=== PATIENT | female | born 1955 | race Caucasian/White ===

== ENCOUNTER 2022-06-24 23:23 | Inpatient (IN) | payer MEDICARE, BC ==
[~2022-06-24] VITALS: Ht 175.3 cm; Wt 68.9 kg
--- NOTE | 2022-06-25 00:20 | NUR ---
Patient ambulatory with a steady gait. A/O x3. NAD noted.
--- NOTE | 2022-06-25 01:19 | NUR ---
Covid swab taken to lab.
--- NOTE | 2022-06-25 01:55 | NUR ---
Dr. Antonio at bedside. MSE in progress.
[2022-06-25 01:57] LABS: HEMATOCRIT 39.9 % (31.2-41.9); MEAN CORPUSCULAR HEMOGLOBIN 30.5 uug (24.7-32.8); MEAN CORPUSCULAR VOLUME 92.1 fL (75.5-95.3); PLATELET COUNT (AUTO) 330 K/uL (179-408)
[2022-06-25 02:03] LABS: ALANINE AMINOTRANSFERASE 20 U/L (14-59); ALKALINE PHOSPHATASE 127 U/L (50-136); ASPARTATE AMINOTRANSFERASE < 5 U/L (15-37); BILIRUBIN,DIRECT < 0.1 mg/dL (0.0-0.2); BILIRUBIN,TOTAL 0.2 mg/dL (0.2-1.0); CARBON DIOXIDE 28 mmol/L (21-32); CHLORIDE 105 mmol/L (98-107); GLUCOSE 127 mg/dL (74-106); POTASSIUM 3.9 mmol/L (3.5-5.1); TOTAL PROTEIN, SERUM 7.1 g/dL (6.4-8.2); UREA NITROGEN, BLOOD 21 mg/dL (7-18)
[2022-06-25 02:06] LABS: ETHANOL < 3 MG/DL (0-0)
[2022-06-25 02:11] LABS: THYROID STIMULATING HORMONE 2.238 mIU/mL (0.358-3.740)
[2022-06-25 02:21] LABS: ACETAMINOPHEN < 2.0 ug/mL (10-30)
[2022-06-25 03:22] LABS: *BILIRUBIN,URIN NEGATIVE (NEGATIVE); *BLOOD, URINE NEGATIVE (NEGATIVE); *CLARITY,URINE CLEAR (CLEAR); *COLOR,URINE YELLOW (YELLOW); *KETONES,URINE NEGATIVE (NEGATIVE); *UROBILINOGEN,URINE 0.2 E.U./dl (NORMAL); LEUKOCYTE ESTERASE ,URINE NEGATIVE (NEGATIVE); NITRITE, URINE NEGATIVE (NEGATIVE); UGLUCOSE NEGATIVE (NEGATIVE)
[2022-06-25 03:30] LABS: *AMPHETAMINE, URINE NEGATIVE (NEGATIVE); *CANNABINOID, URINE NEGATIVE (NEGATIVE); *COCCAINE, URINE NEGATIVE (NEGATIVE); *OPIATE, URINE NEGATIVE (NEGATIVE); *PHENCYCLIDINE SCREEN,URINE NEGATIVE (NEGATIVE)
--- NOTE | 2022-06-25 04:52 | NUR ---
Called [facility], no one answered the phone. Will call back in 5 - 10 min.
--- NOTE | 2022-06-25 05:30 | NUR ---
Report given to BAN Pena.
[2022-06-25] MEDS ORDERED: CLON0.5T PO (06:54)
[2022-06-25] MEDS ORDERED: TRAZ-182 PO (06:54)
[2022-06-25] MEDS ORDERED: OLAN5TAB70 PO (06:54)
[2022-06-25] MEDS ORDERED: ESCI20TA PO (06:54)
--- NOTE | 2022-06-25 07:13 | NUR ---
Pt. admitted to MHU, under care of Dr. Baires Belongs List completed
[2022-06-25 07:30] VITALS: BP 134/89
[2022-06-25] MEDS ORDERED: MAGNESIUM HYDROXIDE 30 ML LIQUID UDC PO PRN (08:00)
[2022-06-25] MEDS ORDERED: BLOOD SUGAR DIAGNOSTIC 1 EACH STRIP VI ONE (08:00)
[2022-06-25] MEDS: CLONAZEPAM 0.5 MG TABLET PO PRN (08:30)
--- NOTE | 2022-06-25 09:52 | NUR ---
Admitted a case of 67 years old female from [facility] with history of Psychosis. Patient is on 5150 status hold. Patient arrived in a wheel chair accompanied by RN. Initial report given by Becky CEVALLOS. On admission patient was cooperative to physical assessment and vital signs. Patient ambulates without assistance, lower extremities within functional limits. Upon face to face, patient appeared alert, oriented to person, place, and time, redirectable, cooperative. Patient denies any suicidal or homicidal ideations nor any hallucinations or delusions. Patient was also offered brief orientation to unit rules and policies and given copy of patient's rights handbook. Patient valuables and belongings searched and inventoried, contraband removed. Psychiatrist Dequan and Medical physician Juaquin were informed and orders were carried out. Patient denies any pain or any discomfort.Emotional support provided. Fall and safety precautions implemented. Will continue to monitor for safety.
[2022-06-25] MEDS ORDERED: ESCITALOPRAM OXALATE 10 MG TABLET NG SCH (11:00)
[2022-06-25] MEDS: ESCITALOPRAM OXALATE 10 MG TABLET PO SCH (11:35)
--- NOTE | 2022-06-25 12:01 | NUR ---
DAX Initial Discharge Note: Pt currently resides at home alone located at [address] [place] [address] ([phone]). Pt is alert and oriented x4. Pt stated she would like to return to her home. Pt however is open to a temporary fci facility if recommended by the psychiatrist upon discharge. Pt's sister, Digna will be involved per pt. Pt stated she does not have a DPOA or conservator. Pt stated she is self-responsible. DAX will continue to work with pt, Digna, and to ensure a safe and proper discharge plan.
--- NOTE | 2022-06-25 12:11 | NUR ---
Firearms Report: Cotton Ball Machine Tender completed and submitted a [employer] firearms report for 5150 grave disability certifications. A copy of report has been placed in patient chart.
[2022-06-25 17:24] VITALS: BP 139/82
[2022-06-25] MEDS: TRAZODONE 50 MG TABLET PO SCH (20:09)
--- NOTE | 2022-06-25 20:30 | NUR ---
RECEIVED PATIENT IN HER ROOM, SHE WAS SITTING IN HER BED. PATIENT NOTED A/O X 3. SHE ANXIOUS AND SHE APPEARS PREOCCUPIED AND FIXED ABOUT SLEEPING THROUGH THE NIGHT. SHE STATED, "I JUST NEED MY TRAZODONE. I NEED TO SLEEP TONIGHT BECAUSE I DIDN'T SLEEP WELL LAST NIGHT". PATIENT IS ABLE TO VERBALIZED HER FEELINGS. PATIENT DENIED SI/HI/VH/AH. SHE IS ABLE TO CFS. V/S STABLE. SHE WAS GIVEN PO FLUIDS AND SNACKS. SHE IS REASSURED FOR HER SAFETY. SAFETY AND FALL PRECAUTIONS ARE IN PLACE. WILL CONTINUE TO MONITOR.
[2022-06-25 20:36] VITALS: BP 117/76
[2022-06-26 06:35] LABS: HEMATOCRIT 41.6 % (31.2-41.9); MEAN CORPUSCULAR HEMOGLOBIN 30.5 uug (24.7-32.8); MEAN CORPUSCULAR VOLUME 91.8 fL (75.5-95.3); PLATELET COUNT (AUTO) 323 K/uL (179-408)
[2022-06-26 07:23] LABS: POTASSIUM 4.2 mmol/L (3.5-5.1)
[2022-06-26 07:30] VITALS: BP 120/78
[2022-06-26] MEDS: ACETAMINOPHEN 325 MG TABLET PO PRN (08:39)
[2022-06-26] MEDS: ESCITALOPRAM OXALATE 10 MG TABLET PO SCH (08:40)
[2022-06-26] MEDS: CLONAZEPAM 0.5 MG TABLET PO PRN ×2 (08:40→15:07)
[2022-06-26 16:26] VITALS: BP 110/74
[2022-06-26 20:10] VITALS: BP 105/69
[2022-06-26] MEDS: TRAZODONE 50 MG TABLET PO SCH (20:48)
[2022-06-27] MEDS: TEMAZEPAM 7.5 MG CAPSULE PO PRN (02:08)
--- NOTE | 2022-06-27 03:44 | NUR ---
Patient is withdrawn and refuses to engage with staff or peers. The patient stayed in her room all evening, in bed with blanket over her head. At one point in the night , the patient showed up at the nurses station asking for a sleeping pill. This flex o writer operator assisted the patient with a shower and provided clean cloths. The patient appeared malodorous and unkept. Some paranoia noticed when patient was having a basic interaction with this flex o writer operator. Poor insight and seemingly no motivation to improve mood or to try any type of coping stratiges at this time. Staff will continue to encourage patient to participate in unit activities , spend more time out of the bed and to verbalize her feelings.
[2022-06-27 07:30] VITALS: BP 104/75
[2022-06-27] MEDS: CLONAZEPAM 0.5 MG TABLET PO PRN ×3 (08:05→19:54)
[2022-06-27] MEDS: ESCITALOPRAM OXALATE 10 MG TABLET PO SCH (08:44)
--- NOTE | 2022-06-27 14:59 | NUR ---
Gps/Airport Maintenance Laborer- Stayed in her room most of the morning, observed patient out of her room couple of times. Making her simple needs, known, claimed she's not feeling too well, anxious, tremulous left hamd , clonopin 0.5 mg po 1 tab. given, for anxiety, verbalized some relief .
[2022-06-27 16:58] VITALS: BP 97/73
[2022-06-27] MEDS: ACETAMINOPHEN 325 MG TABLET PO PRN (18:23)
[2022-06-27 20:15] VITALS: BP 141/79
[2022-06-27] MEDS: TRAZODONE 50 MG TABLET PO SCH (21:30)
--- NOTE | 2022-06-28 06:35 | NUR ---
Patient remained isolative in her room. Only time she came out was to ask for " Anxiety medication. " This patient does not engage in any conversation . Slept 8.15 hours and came out of room to the station asking for more " Anxiety medication ." Continuing to encourage this patient to participate with group, too verbalize feelings and to talk about better coping mechanisms other than taking medication around the clock and sleeping as much as possible.
[2022-06-28 07:29] VITALS: BP 116/53
[2022-06-28] MEDS: ESCITALOPRAM OXALATE 10 MG TABLET PO SCH (08:16)
[2022-06-28] MEDS: CLONAZEPAM 0.5 MG TABLET PO PRN ×4 (08:17→20:17)
[2022-06-28] MEDS: ENSURE ENLIVE (VAN) 240 ML LIQUID PO SCH (10:39)
[2022-06-28] MEDS: ACETAMINOPHEN 325 MG TABLET PO PRN (14:26)
--- NOTE | 2022-06-28 15:02 | NUR ---
GPS: Nursing Notes: Mood Disturbance: Depression: Patient is awake and responding to her name, needs prompting to participate in therapeutic groups, depressed mood and anxious affect, isolative and withdrawn in her room at times, evasive when questioned by staff, gets easily anxious when redirected, unable to formulate a viable plan for self care, continue to be compliant with her medications, continue to monitor for safety, continue with treatment plan.
[2022-06-28 16:18] VITALS: BP 95/68
--- NOTE | 2022-06-28 18:02 | NUR ---
GPS: Nursing Notes: Regarding Medication - Ingrezza: Staff informed covering psychiatrist Dr. Muñoz that patient's sister - Digna stated that patient needs to be taking Ingrezza for tardive dyskinesia, Dr. Muñoz said that our pharmacy does not have Ingrezza and he will evaluate her TD tomorrow morning. Staff informed patient's sister - Digna if she could bring the medication if possible. She stated that she would try, but nothing for sure, continue to monitor for safety, continue with treatment plan.
[2022-06-28 20:10] VITALS: BP 96/64
[2022-06-28] MEDS: TRAZODONE 50 MG TABLET PO SCH (20:17)
--- NOTE | 2022-06-29 06:29 | NUR ---
At the start of the shift , patient was requesting Klonopin for anxiety. After receiving PM medications, patient slept all night. This fiction writer did try to engage in conversation with the patient but the patient was not interested. Safety Stratiges in place. Patient denied SI. Monitoring for S/S of TD , depression , confusion and anxiety.
[2022-06-29 07:40] VITALS: BP 106/63
[2022-06-29] MEDS: CLONAZEPAM 0.5 MG TABLET PO PRN ×4 (08:22→20:43)
[2022-06-29] MEDS: ESCITALOPRAM OXALATE 10 MG TABLET PO SCH (08:22)
[2022-06-29] MEDS: ENSURE ENLIVE (VAN) 240 ML LIQUID PO SCH (08:23)
[2022-06-29] MEDS: ACETAMINOPHEN 325 MG TABLET PO PRN (11:48)
--- NOTE | 2022-06-29 12:05 | NUR ---
GPS: Nursing Notes: Mood Disturbance: Depression: Patient is awake and responding to her name, depressed mood and anxious affect, needs prompting to participate in therapeutic groups, gets isolative and withdrawn in her room, evasive when questioned by staff, unable to formulate a viable plan for self care, gets easily anxious when redirected, informed covering psychiatrist Dr. Muñoz of hand tremors and involuntary movement of her tongue, per Dr. Muñoz - for Dr. Baires to follow up tomorrow and to call the sister - Digna, continue to monitor for safety, continue with treatment plan.
[2022-06-29 16:04] VITALS: BP 93/58
[2022-06-29 19:27] VITALS: BP 108/66
[2022-06-29] MEDS: TRAZODONE 50 MG TABLET PO SCH (20:43)
[2022-06-30 07:43] VITALS: BP 95/63
[2022-06-30] MEDS: CLONAZEPAM 0.5 MG TABLET PO PRN ×2 (08:18→15:24)
[2022-06-30] MEDS: ESCITALOPRAM OXALATE 10 MG TABLET PO SCH (08:19)
[2022-06-30] MEDS: ENSURE ENLIVE (VAN) 240 ML LIQUID PO SCH (08:21)
[2022-06-30] MEDS: busPIRone 10 MG TABLET PO SCH (11:20)
[2022-06-30] MEDS: BENZTROPINE MESYLATE 0.5 MG TABLET PO SCH ×2 (11:20→16:10)
--- NOTE | 2022-06-30 13:14 | NUR ---
GPS: Nursing Notes: Mood Disturbance: Depression: Patient is awake and responding to her name, needs prompting to participate in therapeutic groups, depressed mood and anxious affect, delayed responds to questions, but gets easily anxious when questioned by staff, unable to formulate a viable plan for self care, episodes of pacing the hallway, internally preoccupied, gets isolative and withdrawn in her room at times, continue to monitor for safety, compliant with her medications, José Johnson NP spoke with her sister - Digna. Patient started with Cogentin for tardive dyskinesia and Buspar for anxiety per José Johnson NP orders, continue with treatment plan.
[2022-06-30] MEDS: ACETAMINOPHEN 325 MG TABLET PO PRN (15:24)
[2022-06-30 15:35] VITALS: BP 93/59
[2022-06-30 19:55] VITALS: BP 129/79
[2022-06-30] MEDS: TRAZODONE 50 MG TABLET PO SCH (21:10)
[2022-07-01 07:30] VITALS: BP 103/65
[2022-07-01] MEDS: busPIRone 10 MG TABLET PO SCH (09:03)
[2022-07-01] MEDS: BENZTROPINE MESYLATE 0.5 MG TABLET PO SCH ×2 (09:03→16:59)
[2022-07-01] MEDS: ENSURE ENLIVE (VAN) 240 ML LIQUID PO SCH (09:03)
[2022-07-01] MEDS: ESCITALOPRAM OXALATE 10 MG TABLET PO SCH (09:03)
--- NOTE | 2022-07-01 10:06 | NUR ---
Patient had Court Hearing today, 14 Days hold probable cause was given under GD only.
--- NOTE | 2022-07-01 12:52 | NUR ---
GPS: Nursing Notes: Mood Disturbance: Depression: Patient is awake and responding to her name, depressed mood and anxious affect, evasive when questioned by staff, A/Ox3, participating in therapeutic groups, cooperative with nursing care, but isolative and withdrawn in her room at times, unable to formulate a viable plan for self care, continue to monitor for safety, continue with treatment plan.
[2022-07-01 16:56] VITALS: BP 105/64
[2022-07-01] MEDS: CLONAZEPAM 0.5 MG TABLET PO PRN (16:59)
[2022-07-01] MEDS: ACETAMINOPHEN 325 MG TABLET PO PRN (16:59)
--- NOTE | 2022-07-01 20:30 | NUR ---
RECEIVED PATIENT IN HER ROOM IN BED. SHE IS NOTED AWAKE A/O X 2. PATIENT NOTED WITH LOW MOOD AFFECT IS BLUNTED, SPEECH IS CIRCUMSTANTIAL. SHE CONTINUE ISOLATIVE AND WITHDRAWN. SHE APPEARS TO MINIMIZED HER SYMPTOMS. PATIENT WAS REASSURED FOR HER SAFETY, SAFETY AND FALL PRECAUTIONS ARE IN PLACE. V/S STABLE. SHE WAS GIVEN PO FLUIDS AND SNACKS. WILL CONTINUE TO MONITOR.
[2022-07-01] MEDS: TRAZODONE 50 MG TABLET PO SCH (20:48)
[2022-07-01 21:01] VITALS: BP 104/62
[2022-07-02 07:30] VITALS: BP 96/64
[2022-07-02] MEDS: BENZTROPINE MESYLATE 0.5 MG TABLET PO SCH ×2 (09:14→17:16)
[2022-07-02] MEDS: ESCITALOPRAM OXALATE 10 MG TABLET PO SCH (09:14)
[2022-07-02] MEDS: busPIRone 10 MG TABLET PO SCH (09:14)
[2022-07-02] MEDS: ENSURE ENLIVE (VAN) 240 ML LIQUID PO SCH (09:15)
[2022-07-02 16:23] VITALS: BP 122/77
[2022-07-02 20:11] VITALS: BP 106/70
[2022-07-02] MEDS: TRAZODONE 50 MG TABLET PO SCH (20:19)
--- NOTE | 2022-07-02 21:02 | NUR ---
Received patient in the hallway by the nurses station. Patient was alert.Patient requested for water from this typewriter assembler. Patient has a blunt affect and forced a smile as she thanked the typewriter assembler. Patient requested medication and was fixed on getting enough sleep. Patient took medication with no hesitation and got ready for bed. Patient came to nurses station requesting for sleep medication, but she was told to wait until after 2129. Patient's vital signs are stable and fall and safety precautions are put in place. She was given PO fluids and snacks. This typewriter assembler will continue to monitor patient's behavior.
[2022-07-03] MEDS: TEMAZEPAM 7.5 MG CAPSULE PO PRN ×2 (01:48→21:37)
[2022-07-03 07:30] VITALS: BP 114/66
[2022-07-03] MEDS: BENZTROPINE MESYLATE 0.5 MG TABLET PO SCH ×2 (09:20→16:56)
[2022-07-03] MEDS: ESCITALOPRAM OXALATE 10 MG TABLET PO SCH (09:20)
[2022-07-03] MEDS: busPIRone 10 MG TABLET PO SCH (09:20)
[2022-07-03] MEDS: ENSURE ENLIVE (VAN) 240 ML LIQUID PO SCH (09:21)
--- NOTE | 2022-07-03 14:06 | NUR ---
DAX Family Contact: DAX spoke with pt's sister, Digna ([phone]) regarding pt's discharge plan. Digna stated she would like to be informed a few days prior to her discharge to return home in order for her to make sure she has the animal caretaker waiting for the pt at her house. Digna stated she will be in charge of ensuring pt has food and water as well prior to returning home. Digna stated she lives on the [place] [facility]. Digna, however helps with as much as she can. Digna also stated pt does not have a DPOA or conservator. Digna provided pt's following psychiatrist, Dr. Huang ([phone]) and therapist, Dr. Nikky Evangelista ([phone]). Digna stated pt does not have any family locally.
--- NOTE | 2022-07-03 14:13 | NUR ---
DAX Family Contact: DAX spoke with pt's sister, Digna ([phone]) regarding pt's discharge plan. Digna stated she would like to be informed a few days prior to her discharge to return home in order for her to make sure she has the access assoc waiting for the pt at her house. Digna stated she will be in charge of ensuring pt has food and water as well prior to returning home. Digna stated she [place] the [place] [facility]. Digna, however helps with as much as she can. Digna also stated pt does not have a DPOA or conservator. Digna provided pt's following psychiatrist, Dr. Huang ([phone]) and therapist, Dr. Nikky Evangelista ([phone]). Digna stated pt does not have any family locally. Digna also stated that she is open to discussing a temporary penitentiary facility with Dr. Johnson prior to discharge for pt's continuation of care.
[2022-07-03] MEDS: CLONAZEPAM 0.5 MG TABLET PO PRN (14:31)
[2022-07-03] MEDS: MAG HYDROX/AL HYDROX/SIMETH 30 ML LIQUID UDC PO PRN (14:31)
--- NOTE | 2022-07-03 14:32 | NUR ---
Gps/Sewer Connector- Patient verbalized feelings of being anxious, offered clonopin 0.5 mg 1 tab po, also complained she had upset stomach, had small emesis x3 , not observed, offered, mylanta 30 ml, po, will monitor results. Encouraged to attend her group tx.
[2022-07-03 20:12] VITALS: BP 109/71
[2022-07-03] MEDS: TRAZODONE 50 MG TABLET PO SCH (20:28)
--- NOTE | 2022-07-04 04:13 | NUR ---
GPS NOTES: Patient is observed to be withdrawn and isolative in her room. Only interacts when engaged, she is with low energy and depress mood. Makes little conversation, she is pleasant and make simple compliments to staff. Offers fluid and snacks but refused. Restoril given as per her request. She slept 6.45hours. Safety strategies in place.
[2022-07-04 07:30] VITALS: BP 104/65
[2022-07-04] MEDS: busPIRone 10 MG TABLET PO SCH (08:22)
[2022-07-04] MEDS: BENZTROPINE MESYLATE 0.5 MG TABLET PO SCH ×2 (08:22→17:17)
[2022-07-04] MEDS: ESCITALOPRAM OXALATE 10 MG TABLET PO SCH (08:31)
[2022-07-04] MEDS: MAG HYDROX/AL HYDROX/SIMETH 30 ML LIQUID UDC PO PRN (08:59)
[2022-07-04] MEDS: ENSURE ENLIVE (VAN) 240 ML LIQUID PO SCH (09:00)
--- NOTE | 2022-07-04 10:58 | NUR ---
DAX Family Contact: DAX spoke with pt's sister, Digna ([phone]) regarding pt's discharge plan. SW answered Digna's concerns. Digna stated pt has a annealing furnace tender at home [address] [place] [address] ([phone]) where she would like the pt to discharge to and not a SNF. SW stated that the pt herself agreed to a prison facility, however she is not forced and it is the pt's decision. Digna stated she understands this. SW discussed the transportation with Digna stating that medicare does not cover transportation to [place] via ambulance. SW discussed transportation options such as affinity transport or taxi. The pt as well stated she will pay for her own transportation. Digna stated she will help however she can regarding the pt's transportation.
[2022-07-04] MEDS: CLONAZEPAM 0.5 MG TABLET PO PRN (14:03)
--- NOTE | 2022-07-04 14:11 | NUR ---
DAX Family Contact: DAX spoke with pt's sister, Digna ([phone]) regarding pt's update. DAX once again provided affinity transport contact information. DAX did express that if the pt or Digna are not able to provide transportation, the pt will need to discharge via ambulance to a temporary assisted facility. Digna stated she is going to try to avoid this and help how she can. Digna stated she will do her part in figuring out the transportation and inform his consumer loan underwriter with a decision either today or Thursday. The pt as well stated she will pay for her own transportation. Digna stated she will help however she can regarding the pt's transportation.
[2022-07-04 17:02] VITALS: BP 102/64
--- NOTE | 2022-07-04 17:55 | NUR ---
Gps/Vp Customer Development- Guarded, staying in her room most of the afternoon , denies any nausea , verbalized feelings and needs, was able to talked to her Sister Digna ,
[2022-07-04] MEDS: TRAZODONE 50 MG TABLET PO SCH (20:56)
[2022-07-04 21:30] VITALS: BP 108/66
--- NOTE | 2022-07-05 06:24 | NUR ---
No issues during the night. Patients sister Digna called at the start of the shift to enquire about the patients current medications. Verbal authorization was given to this communications writer , by the patient ,to speak with Digna .The patient slept over 8 hours . This communications writer was unable to engage in any meaningful conversation with this patient. She did however deny having SI at this time. Vehicle Leasing And Rental Manager noticed the patient was spending more time out of her room , than prior nights. Safety Stratiges are in place. Continuing to encourage this patient to discuss her feelings.
[2022-07-05 07:41] VITALS: BP 103/65
[2022-07-05] MEDS: BENZTROPINE MESYLATE 0.5 MG TABLET PO SCH ×2 (08:38→16:19)
[2022-07-05] MEDS: ESCITALOPRAM OXALATE 10 MG TABLET PO SCH (08:38)
[2022-07-05] MEDS: busPIRone 10 MG TABLET PO SCH (08:38)
[2022-07-05] MEDS: ENSURE ENLIVE (VAN) 240 ML LIQUID PO SCH (08:39)
--- NOTE | 2022-07-05 12:55 | NUR ---
Gps/Director Of Casino Marketing- Less anxious, claimed feeling a lot better, denies any nausea, able to eat half of her food, denies any discomfort at this time. In and out of her group activity , guarded, encouraged continued verbalizations of her needs and feelings .
[2022-07-05] MEDS: CLONAZEPAM 0.5 MG TABLET PO PRN (13:10)
[2022-07-05 16:17] VITALS: BP 98/59
[2022-07-05 20:00] VITALS: BP 102/66
[2022-07-05] MEDS: TRAZODONE 50 MG TABLET PO SCH (21:18)
[2022-07-05] MEDS: TEMAZEPAM 7.5 MG CAPSULE PO PRN (22:33)
[2022-07-06] MEDS: BENZTROPINE MESYLATE 0.5 MG TABLET PO SCH ×2 (08:13→16:45)
[2022-07-06] MEDS: ESCITALOPRAM OXALATE 10 MG TABLET PO SCH (08:13)
[2022-07-06] MEDS: ENSURE ENLIVE (VAN) 240 ML LIQUID PO SCH (08:14)
[2022-07-06] MEDS: MAG HYDROX/AL HYDROX/SIMETH 30 ML LIQUID UDC PO PRN (08:14)
[2022-07-06] MEDS: busPIRone 10 MG TABLET PO SCH (08:14)
[2022-07-06 08:24] VITALS: BP 96/59
[2022-07-06] MEDS: CLONAZEPAM 0.5 MG TABLET PO PRN (10:16)
[2022-07-06] MEDS: busPIRone 5 MG TABLET PO SCH ×2 (12:39→16:45)
--- NOTE | 2022-07-06 15:01 | NUR ---
Gps/Shotblast Equipment Operator- Claimed she had another episode of small emesis, offered lemon hoh soda with ice, claimed she felt better. Claimed she also moveds her bowels
[2022-07-06 16:04] VITALS: BP 100/69
--- NOTE | 2022-07-06 16:07 | NUR ---
Gps/Chargemaster Analyst- Urine specimen obtained, sent to lab. as ordered.
[2022-07-06 16:12] LABS: *BILIRUBIN,URIN NEGATIVE (NEGATIVE); *BLOOD, URINE NEGATIVE (NEGATIVE); *CLARITY,URINE CLEAR (CLEAR); *COLOR,URINE YELLOW (YELLOW); *KETONES,URINE NEGATIVE (NEGATIVE); *UROBILINOGEN,URINE 0.2 E.U./dl (NORMAL); LEUKOCYTE ESTERASE ,URINE NEGATIVE (NEGATIVE); NITRITE, URINE NEGATIVE (NEGATIVE); PH,URINE 7.5 (5.0-8.0); UGLUCOSE NEGATIVE (NEGATIVE)
[2022-07-06 19:59] VITALS: BP 112/66
[2022-07-06] MEDS: TRAZODONE 50 MG TABLET PO SCH (21:29)
[2022-07-06] MEDS: TEMAZEPAM 7.5 MG CAPSULE PO PRN (22:43)
[2022-07-07 07:44] VITALS: BP 106/70
[2022-07-07] MEDS: ESCITALOPRAM OXALATE 10 MG TABLET PO SCH (08:42)
[2022-07-07] MEDS: MAG HYDROX/AL HYDROX/SIMETH 30 ML LIQUID UDC PO PRN (08:43)
[2022-07-07] MEDS: BENZTROPINE MESYLATE 0.5 MG TABLET PO SCH ×2 (08:43→16:20)
[2022-07-07] MEDS: ENSURE ENLIVE (VAN) 240 ML LIQUID PO SCH (08:43)
[2022-07-07] MEDS: busPIRone 5 MG TABLET PO SCH ×3 (08:43→16:19)
--- NOTE | 2022-07-07 10:56 | NUR ---
DAX Family Contact: DAX contacted pt's sister, Digna ([phone]) regarding pt's update. DAX left a voicemail informing Digna that pt is cleared for discharge this , July 10 to return home. DAX also asked for a call back to discuss pt's discharge transportation as Digna stated she will be figuring it out to finalize and confirm with this press writer. Pt will be returning to her home with a parts chaser metal fabricating shop helper per Digna.
--- NOTE | 2022-07-07 11:02 | NUR ---
GPS: Nursing Notes: C/O N/V: Patient c/o vomiting and having loose stool X1, informed to Emily Antonio NP, stated that she was aware of this since yesterday and ordered lab.test, today Emily Antonio NP order more lab. tests, continue to monitor for safety, continue with treatment plan.
--- NOTE | 2022-07-07 11:24 | NUR ---
DAX Family Contact: Pt's sister, Digna ([phone]) returned this SW's call regarding pt's discharge transportation. Digna stated she is actively working on pt's transportation and will contact this typewriter mechanic and the nursing station once there is a confirmed transportation in place. Digna is aware the discharge is set for for the pt to return home. DAX asked for Digna to please inform either the SW or nursing station regarding pt's transportation confirmation by Thursday. Digna stated she understands and she will contact both the SW and nursing station.
[2022-07-07 11:54] LABS: HEMATOCRIT 41.2 % (31.2-41.9); MEAN CORPUSCULAR HEMOGLOBIN 30.2 uug (24.7-32.8); PLATELET COUNT (AUTO) 335 K/uL (179-408)
[2022-07-07 12:06] LABS: BILIRUBIN,DIRECT 0.1 mg/dL (0.0-0.2); BILIRUBIN,TOTAL 0.5 mg/dL (0.2-1.0); TOTAL PROTEIN, SERUM 7.3 g/dL (6.4-8.2)
[2022-07-07] MEDS: CLONAZEPAM 0.5 MG TABLET PO PRN (13:06)
--- NOTE | 2022-07-07 13:36 | NUR ---
GPS: Nursing Notes: Mod Disturbance: Depression: Patient is awake and responding to her name, cooperative with nursing care, compliant with her medications, following staff directions, A/Ox4, depressed mood and anxious affect, gets easily anxious when redirected, believes that she is getting better.." but stated "My mind is not connecting right...", low energy level, unable to formulate a viable plan for self care, continue to monitor for safety, continue with treatment plan.
[2022-07-07 15:45] VITALS: BP 109/67
--- NOTE | 2022-07-07 16:13 | NUR ---
SW Family Contact/discharge update: Pt's sister, Digna ([phone]) contacted this show card writer and informed this SW that she is arranging for uber for this per psychiatrist's discharge clearance. Digna stated she will call the nursing station and provide the transportation details.
--- NOTE | 2022-07-07 18:30 | NUR ---
GPS: Nursing Notes: C-diff Protocol: Due to C-diff protocol for 3 days after admission. Patient does not qualified for C-diff loose stool check due to patient having only one loose stool during the shift, endorse to incoming shift, continue to monitor for safety, continue with treatment plan.
[2022-07-07 20:22] VITALS: BP 90/56
[2022-07-07] MEDS: TRAZODONE 50 MG TABLET PO SCH (20:30)
[2022-07-07] MEDS: TEMAZEPAM 7.5 MG CAPSULE PO PRN (22:12)
--- NOTE | 2022-07-08 05:05 | NUR ---
GPS NOTES: Patient remains A&0x3, able to make needs known to staff. Noted to be more out of bed, walking around the unit. Med compliant. She is noted to be constantly sticking out her tongue, moving her jaw and lip smacking. Snacks and fluid given. She slept 7.0H during shift. No distress noted. Safety measure in placed.
[2022-07-08 07:31] VITALS: BP 108/69
[2022-07-08] MEDS: ENSURE ENLIVE (VAN) 240 ML LIQUID PO SCH ×2 (08:34→16:55)
[2022-07-08] MEDS: busPIRone 5 MG TABLET PO SCH ×3 (08:34→16:55)
[2022-07-08] MEDS: BENZTROPINE MESYLATE 0.5 MG TABLET PO SCH ×2 (08:34→16:55)
[2022-07-08] MEDS: ESCITALOPRAM OXALATE 10 MG TABLET PO SCH (08:34)
[2022-07-08] MEDS: MAG HYDROX/AL HYDROX/SIMETH 30 ML LIQUID UDC PO PRN (08:48)
--- NOTE | 2022-07-08 09:10 | NUR ---
GPS: Nursing Notes: C/O Vomiting: Patient vomited X1, informed Josélobo Johnson NP. MAT Johnson discontinue Lexapro to relieve patient upset stomach after reviewing the lab. results, continue to monitor for safety, continue with treatment plan.
[2022-07-08] MEDS: CLONAZEPAM 0.5 MG TABLET PO PRN (10:18)
--- NOTE | 2022-07-08 11:51 | NUR ---
GPS: Nursing Notes: Mood Disturbance: Depression: Patient is awake and responding to her name, depressed mood and anxious affect, needs prompting to participate in therapeutic groups, compliant with her medications, cooperative with nursing care, isolative and withdrawn in her room, minimal interactions with peers, low energy level, unable to formulate a viable plan for self care, denies SI/HI, continue to monitor for safety, continue with treatment plan.
[2022-07-08 15:53] VITALS: BP 108/65
[2022-07-08 19:54] VITALS: BP 102/66
[2022-07-08] MEDS: TRAZODONE 50 MG TABLET PO SCH (20:22)
[2022-07-09 07:50] VITALS: BP 96/54
[2022-07-09] MEDS: busPIRone 5 MG TABLET PO SCH ×3 (08:37→16:36)
[2022-07-09] MEDS: BENZTROPINE MESYLATE 0.5 MG TABLET PO SCH ×2 (08:37→16:36)
[2022-07-09] MEDS: ENSURE ENLIVE (VAN) 240 ML LIQUID PO SCH ×2 (08:45→17:30)
[2022-07-09] MEDS: CLONAZEPAM 0.5 MG TABLET PO PRN ×2 (08:54→13:54)
--- NOTE | 2022-07-09 09:19 | NUR ---
Gave Klonopin 0.5mg d/t increased anxiety. Will continue to minitor.
--- NOTE | 2022-07-09 13:54 | NUR ---
Patient requested medication to help with her anxiety. Pt is [id number] asking for her Klonopin. Upon re-education of the possibility of addiction with this medication, pt became slightly irritable, noted trembling of the hands and face, and stressed that she needed the medication. This nurse stressed the importance of alternative ways to control her anxiety, instead of relying on the medication. Pt verbalized understanding but still requested the med. Will continue to monitor.
--- NOTE | 2022-07-09 14:16 | NUR ---
Dyskinesia (lip-smacking) noted. Educated patient on being extra careful not to overuse/abuse her as-needed medications such as her Klonopin which she sometimes asks for [id number].
[2022-07-09 17:05] VITALS: BP 99/65
[2022-07-09] MEDS: TRAZODONE 50 MG TABLET PO SCH (20:33)
[2022-07-09 20:43] VITALS: BP 90/58
--- NOTE | 2022-07-09 21:40 | NUR ---
This speech writer received this patient in the hallway. Upon approach patient is calm and continues experiencing lip-smacking. This speech writer asked the patient if she was glad to be going home, in which the patient replied, "Yes, I am so happy and nervous". Patient's vitals are stable. Patient was given PO fluids and snacks. Will continue to monitor changes in lip-smacking and behavior.
[2022-07-09] MEDS: TEMAZEPAM 7.5 MG CAPSULE PO PRN (22:23)
[2022-07-10 07:35] VITALS: BP 105/68
[2022-07-10] MEDS: busPIRone 5 MG TABLET PO SCH (08:31)
[2022-07-10] MEDS: BENZTROPINE MESYLATE 0.5 MG TABLET PO SCH (08:31)
[2022-07-10] MEDS: ENSURE ENLIVE (VAN) 240 ML LIQUID PO SCH (08:33)
--- NOTE | 2022-07-10 08:38 | NUR ---
DAX Discharge Note: Pt will be discharged to Home [address] [place], [place] [id number] via [employer] at 11AM. DAX spoke with pts sister, Digna Reardon ([phone]) who states she set up the Uber for transportation home to [address] [place] [address]. Pt is aware and agreeable with discharge plans. Pt is alert and oriented x4, pt will continue to receive care at home. Pt denies any suicidal or homicidal ideation. Pt will follow-up her new Psychiatrist at [facility] via Telephone that will be assigned on July 15 at 1:30PM. Pt presents with calm mood and congruent affect. Per patient, Pharmacy is [facility] [place] [address] [place] [address] ([phone]).
[2022-07-10] MEDS ORDERED: ESCITALOPRAM OXALATE 10 MG TABLET NG SCH (09:00)
[2022-07-10] MEDS ORDERED: ESCITALOPRAM OXALATE 10 MG TABLET PO SCH (09:00)
--- NOTE | 2022-07-10 10:56 | NUR ---
Received orders to discharge this patient to Home [address] [place] [address] via [employer] at 11AM. SW spoke with pts sister, Digna Reardon ([phone]) who states she set up the Uber for transportation home to [address] [place] [address]. Pt is aware and agreeable with discharge plans, signed all discharge documents. All belongings and valuables were returned to patient. Patient denies SI/HI AH/VH, SOB, pain or any discomfort. Reassurance given. Fall and safety precautions implemented.
== END 2022-07-10 10:45 | disposition home or self-care (01) | DRG 881 ==
LOC: ER 23:38 → GPS 06-25 03:50
PROVIDERS: ADMIT Psychiatry & Neurology Psychiatry; ATTEND Nurse Practitioner Family
DX: F32.9 Major depressive disorder, single episode, unspecified (principal); F41.9 Anxiety disorder, unspecified; F43.10 Post-traumatic stress disorder, unspecified; Z20.822 Contact with and (suspected) exposure to COVID-19; Z73.6 Limitation of activities due to disability; Z85.3 Personal history of malignant neoplasm of breast; G24.01 Drug induced subacute dyskinesia; G47.00 Insomnia, unspecified
CPT/HCPCS: 36415; 83690; 84443; 85025; 93005; G0480